=== PATIENT | male | born 1990 | race Caucasian/White ===

== ENCOUNTER 2023-07-24 18:21 | Emergency (ER) | payer MEDICAID ==
[~2023-07-24] VITALS: Ht 172.7 cm; Wt 60.3 kg
[2023-07-24 18:37] VITALS: BP 105/66; PULSE 66; RESP 18; TEMP 98.2; O2SAT 98
[2023-07-24] MEDS ORDERED: dexamethasone sod phosphate 10mg/ml inj IM STA (18:41)
== END 2023-07-24 18:51 | disposition home or self-care (01) ==
LOC: ER 18:21
DX: J02.9 Acute pharyngitis, unspecified (principal)
CPT/HCPCS: 96372; 99283; J1100